=== PATIENT | male | born 1990 | race Caucasian/White ===

== ENCOUNTER 2020-03-06 14:13 | Emergency (ER) | payer BC, SELFPAY ==
[2020-03-06 14:26] VITALS: BP 133/94; PULSE 79; RESP 19; TEMP 37.6; O2SAT 99; BMI 25.3
--- NOTE | 2020-03-06 14:33 | HMH.EDUTC ---
[facility] [place] Disposition Clinical Impression: Exposure to COVID-19 virus Sinusitis Qualifiers: Sinusitis location: unspecified location Chronicity: acute Recurrence: non-recurrent Qualified Code(s): J01.90 - Acute sinusitis, unspecified Disposition: Home, Self-Care Condition on Discharge: Good Instructions: Sinusitis, DI for Sinusitis, Preventing the Spread of Coronavirus Discharge Instructions Additional Instructions: Drink plenty of fluids. Take tylenol or ibuprofen for pain or fever. Take the medications as directed. Follow up with your regular doctor. GO TO THE ER FOR ANY WORSENING SYMPTOMS FOLLOW THE DIRECTIONS ON THE COVID-19 HAND OUT THAT WE GAVE YOU REGARDING SELF-ISOLATION UNTIL YOU KNOW YOUR COVID-19 RESULTS Prescriptions: predniSONE [Deltasone 10mg tablet] 10 mg PO BID 3 Days #6 tab Transmission Status: Received by [facility] Azithromycin [Z-Davey 250mg Tab*] 250 mg PO UD DOSE PK #6 tab Transmission Status: [facility] Referrals: PCP,No [Primary Care Provider] - Forms: Work/School Release Time of Disposition: 14:51 Medical Decision Making - Medical Records Medical records reviewed: No: I reviewed the patient's medical records. - [place] Inquiry Pt receiving controlled substance: No Vital Signs: 03/06/20 14:26 03/06/20 14:57 Temperature 99.6 F 99.6 F Temperature Source Temporal Artery Scan Oral Pulse Rate 79 Pulse Rate [Radial] 79 Respiratory Rate 19 19 Blood Pressure 133/94 H Blood Pressure [Right Arm] 133/94 H Blood Pressure Mean [Right Arm] 107 Blood Pressure Source Automatic Cuff Blood Pressure Source [Right Arm] Automatic Cuff Blood Pressure Position Sitting Blood Pressure Position [Right Arm] Sitting 02 Sat by Pulse Oximetry 99 Oxygen Delivery Method Room Air Room Air [facility] [place] HPI - General Stated complaint: sinus infection/covid test Time Seen by Provider: 03/06/20 14:34 Mode of Arrival: Ambulatory Source of Information: Patient Limitations: No Limitations Description of Symptoms (Recalled from Triage Doc. by RN): states that he feels like he has a sinus infection and that his place of employment wants a covid screen done, weak, nausea, sore throat, cough. HEENT Symptoms (Recalled from RN notes): Yes Resp Symptoms (Recalled from RN notes): No Skin Symptoms (Recalled from RN notes): Yes MS Symptoms (Recalled from RN notes): No Functional Status (Recalled from RN notes): wnl - History of Present Illness Provider Complaint: He c/o feeling bad, and having sinus drainage for the past 2 days. - Related Data Previous Rx's Medication Instructions Recorded Amoxicillin/Potassium Clav 1 tab PO Q12H 7 Days #14 tab 05/07/19 [Augmentin 875-125 Tablet] predniSONE [Prednisone 20mg 20 mg PO BID #10 tab 05/07/19 Tab] Azithromycin [Z-Davey 250mg Tab*] 250 mg PO UD DOSE PK #6 tab 09/20/19 Brompheniramine/Pseudoephed/Dm 5 ml PO Q6HP PRN #240 syrup 09/20/19 [Bromfed Dm Cough Syrup] predniSONE [Deltasone 10mg tablet] 10 mg PO BID 4 Days #8 tab 09/20/19 Azithromycin [Z-Davey 250mg Tab*] 250 mg PO UD DOSE PK #6 tab 03/06/20 predniSONE [Deltasone 10mg tablet] 10 mg PO BID 3 Days #6 tab 03/06/20 Allergies Allergy/AdvReac Type Severity Reaction Status Date / Time No Known Allergies Allergy Verified 08/19/18 20:14 - Worker's Comp Is this a Worker's Comp case?: No [facility] [place] History - Hepatitis A Screen Drug use history?: No High risk sexual behaviors?: No History of sexually transmitted infection?: No Currently employed?: No Childcare worker?: No Do you have indoor plumbing?: Yes Do you have electricity?: Yes Attestation statement:: This patient has been screened for Hepatitis A risk factors. I have reviewed the patient's past medical history: Yes Laterality Cases: Bilateral: Myringotomy (Ear Tubes) - Social History Smoking Status: Never smoker Alcohol Intake: never Occupational Status: employed Housing: house
[2020-03-06 14:57] VITALS: BP 133/94; PULSE 79; RESP 19; TEMP 37.6; O2SAT 99
== END 2020-03-06 15:06 | disposition home or self-care (01) ==
PROVIDERS: Emergency Provider Nurse Practitioner Family
DX: Z20.828 Contact with and (suspected) exposure to other viral communicable diseases (principal); J01.90 Acute sinusitis, unspecified
CPT/HCPCS: 99201; U0003

== ENCOUNTER 2020-03-12 14:22 | Emergency (ER) | payer BC, SELFPAY ==
[2020-03-12 14:46] VITALS: BP 132/73; PULSE 57; RESP 14; TEMP 37.2; O2SAT 99; BMI 25.3
--- NOTE | 2020-03-12 14:55 | HMH.EDUTC ---
[facility] [place] Clinical Impression: Allergic rhinitis Qualifiers: Allergic rhinitis trigger: unspecified Allergic rhinitis seasonality: unspecified Qualified Code(s): J30.9 - Allergic rhinitis, unspecified Disposition: Home, Self-Care Condition on Discharge: Good Instructions: Allergic Rhinitis, DI for Allergic Rhinitis, Sore Throat, DI for Viral Upper Respiratory Infection -- Adult, Preventing the Spread of Coronavirus Discharge Instructions Additional Instructions: You was given handout with COVID19 self quarantine and self isolation instructions make sure that you follow them to help prevent the spread of COVID19 Call back tomorrow for the results of your [id number] test Return if needed *Monitor Temp, Over the counter Motrin or Tylenol as directed/as needed Tylenol every 4 hours and Motrin every 6 hours (as long as your family doctor has told you that you can take it) for fever or pain. and straight to ER if unable to lower temp less than 101.0 after medication given *Warm salt water gargles may help to soothe the throat *Throat Lozenges *Warm fluids like tea with honey may help to soothe the throat *Sleep elevated *Humidifier/Vaporizer *Nasonex 2 sprays in each nostril daily but be aware that it may take 2-3 days before you notice improvement Follow up IMMEDIATELY for new or worsening symptoms or no Noticeable improvement over the next 48-72 hours. 911 for difficulty breathing or swallowing Prescriptions: Mometasone Furoate [Nasonex] 2 sprays NS DAILY #1 spray.pump Transmission Status: Pending to [facility] Referrals: PCP,No [Primary Care Provider] - As needed Forms: Work/School Release Time of Disposition: 15:15 Medical Decision Making - [place] Inquiry Pt receiving controlled substance: No [place] was queried for this patient: No Vital Signs: 03/12/20 14:46 Temperature 98.9 F Temperature Source Oral Pulse Rate [Left Brachial] 57 L Respiratory Rate 14 Blood Pressure [Left Arm] 132/73 Blood Pressure Mean [Left Arm] 92 Blood Pressure Source [Left Arm] Automatic Cuff Blood Pressure Position [Left Arm] Sitting 02 Sat by Pulse Oximetry 99 Oxygen Delivery Method Room Air - Lab Data Lab Results 03/12/20 14:54: Strep Scn Rapid Clinic Negative Orders (Tests/Meds): ORDERS Category Date Time Status Coronavirus 19 Swab (OUTPT) Routine Lab 03/12/20 14:53 Ordered Strep Screen Confirmation Stat Micro 03/12/20 14:54 Received [facility] [place] - General Stated complaint: sore throat ear pain Time Seen by Provider: 03/12/20 14:55 Mode of Arrival: Ambulatory Source of Information: Patient Limitations: No Limitations Description of Symptoms (Recalled from Triage Doc. by RN): PATIENT C/O SORE THROAT, COUGH, AND HEADACHE HEENT Symptoms (Recalled from RN notes): Yes Resp Symptoms (Recalled from RN notes): Yes Skin Symptoms (Recalled from RN notes): No MS Symptoms (Recalled from RN notes): No Functional Status (Recalled from RN notes): WNL - History of Present Illness Provider Complaint: Patient states that he has been having sore throat, pain in both ears and mild cough since last week States that he was tested for COVID last week and it was negative and his daughter has been having similar symptoms and was tested yesterday States that today he wasnt feeling any better so he came in to get checked again - Related Data Previous Rx's Medication Instructions Recorded Amoxicillin/Potassium Clav 1 tab PO Q12H 7 Days #14 tab 05/07/19 [Augmentin 875-125 Tablet] predniSONE [Prednisone 20mg 20 mg PO BID #10 tab 05/07/19 Tab] Azithromycin [Z-Davey 250mg Tab*] 250 mg PO UD DOSE PK #6 tab 09/20/19 Brompheniramine/Pseudoephed/Dm 5 ml PO Q6HP PRN #240 syrup 09/20/19 [Bromfed Dm Cough Syrup] predniSONE [Deltasone 10mg tablet] 10 mg PO BID 4 Days #8 tab 09/20/19 Azithromycin [Z-Davey 250mg Tab*] 250 mg PO UD DOSE PK #6 tab 03/06/20 predniSONE [Deltasone 10mg tablet] 10 mg PO BID 3 Days #6 tab 08
[2020-03-12 14:59] LABS: UTC Strep Screen (Rapid) Negative (Negative)
[2020-03-12 15:20] VITALS: BP 132/73; PULSE 57; RESP 14; TEMP 37.2; O2SAT 99
== END 2020-03-12 15:22 | disposition home or self-care (01) ==
PROVIDERS: Emergency Provider Nurse Practitioner
DX: J30.9 Allergic rhinitis, unspecified (principal); Z03.818 Encounter for observation for suspected exposure to other biological agents ruled out
CPT/HCPCS: 87880; 99201; 99202; U0003

== ENCOUNTER 2020-12-09 11:22 | Emergency (ER) | payer BC, SELFPAY ==
[2020-12-09 12:10] VITALS: BP 138/86; PULSE 84; RESP 20; TEMP 37; O2SAT 100; BMI 25.0
--- NOTE | 2020-12-09 12:28 | HMH.EDUTC ---
[facility] [place] Clinical Impression: Enlarged lymph node in neck Otitis externa Qualifiers: Otitis externa type: swimmer's ear Chronicity: acute Laterality: right Qualified Code(s): H60.331 - Swimmer's ear, right ear Disposition: Home, Self-Care Condition on Discharge: Good Instructions: DI for Otitis Externa Additional Instructions: Start antibiotic as soon as possible and be sure to take as ordered for full length of time even though he should start feeling better in 24-48 hours. Tylenol or Motrin as needed for pain or fever Encourage fluids, water, Gatorade, Powerade, Pedialyte if infant/toddler/child Warm compresses often helps when placed over ear Return immediately for new or worsening symptoms no noticeable improvement in 48-72 hours and in 10-14 days to ensure the ears are return to baseline. Follow-up with primary care Prescriptions: cephALEXin [Cephalexin 500mg Tab] 500 mg PO BID 7 Days #14 tab Transmission Status: Pending to [facility] Neomycin/Polymyxin B/Hydrocort [Pdftisvi-Pejsqwsim-Ta Ear Soln] 3 drops OT TID 7 Days #1 bottle Transmission Status: Pending to [facility] Referrals: Provider,Referral, [Primary Care Provider] - Time of Disposition: 12:48 Medical Decision Making - [place] Inquiry Pt receiving controlled substance: No Vital Signs: 12/09/20 12:10 Temperature 98.6 F Temperature Source Oral Pulse Rate [Right Brachial] 84 Respiratory Rate 20 Blood Pressure [Right Arm] 138/86 Blood Pressure Mean [Right Arm] 103 Blood Pressure Source [Right Arm] Automatic Cuff Blood Pressure Position [Right Arm] Sitting 02 Sat by Pulse Oximetry 100 Oxygen Delivery Method Room Air [facility] [place] - General Chief complaint: Urgent Treatment Center Stated complaint: swollen lymph nodes, headache, dizziness Time Seen by Provider: 12/09/20 12:28 Mode of Arrival: Ambulatory Source of Information: Patient Limitations: No Limitations Description of Symptoms (Recalled from Triage Doc. by RN): PATIENT C/O SWOLLEN LYMPH NODES UNDER EARS, DIZZINESS, HEADACHE, SINUS PRESSURE, AND HAD A NOSE BLEED X 1; SYMPTOMS STARTED 2 DAYS AGO HEENT Symptoms (Recalled from RN notes): Yes Resp Symptoms (Recalled from RN notes): No Skin Symptoms (Recalled from RN notes): No MS Symptoms (Recalled from RN notes): No Functional Status (Recalled from RN notes): WNL - History of Present Illness Provider Complaint: 30 yr old male presents for swollen lymph nodes in neck under ears, dizziness,sinus pressure and nose bleed x1. pt states symptoms started 2 days ago. - Related Data Previous Rx's Medication Instructions Recorded Neomycin/Polymyxin B/Hydrocort 3 drops OT TID 7 Days #1 bottle 12/09/20 [Wzrwoply-Yfjivsozj-Ya Ear Soln] cephALEXin [Cephalexin 500mg Tab] 500 mg PO BID 7 Days #14 tab 12/09/20 Allergies Allergy/AdvReac Type Severity Reaction Status Date / Time No Known Allergies Allergy Verified 08/19/18 20:14 - Worker's Comp Is this a Worker's Comp case?: No [facility] History - Hepatitis A Screen Drug use history?: No High risk sexual behaviors?: No History of sexually transmitted infection?: No Currently employed?: No Childcare worker?: No Do you have indoor plumbing?: Yes Do you have electricity?: Yes Attestation statement:: This patient has been screened for Hepatitis A risk factors. I have reviewed the patient's past medical history: Yes Laterality Cases: Bilateral: Myringotomy (Ear Tubes) - Social History Smoking Status: Never smoker Alcohol Intake: never Occupational Status: other Housing: house ROS Obtained: Yes Systems reviewed as appropriate & no additional complaints - Constitutional Constitutional: Reports system reviewed and no additional complaints, except as docu, Denies fever(s) - Eyes Eyes: Reports system reviewed and no additional complaints, except as docu, Denies loss of vision - ENT Ears, Nose, Mouth, and Throat: Reports system reviewed and no additi
[2020-12-09 12:51] VITALS: BP 138/86; PULSE 84; RESP 20; TEMP 37; O2SAT 100
== END 2020-12-09 12:51 | disposition home or self-care (01) ==
PROVIDERS: Emergency Provider Nurse Practitioner Family
DX: H60.331 Swimmer's ear, right ear (principal)
CPT/HCPCS: 99202; G0463; U0003

== ENCOUNTER 2021-01-15 08:07 | Outpatient (RCR) | payer BC, SELFPAY | END 2021-02-14 11:00 | disposition home or self-care (01) | LOC: PT.CARL 08:07 | PROVIDERS: Visit Provider Nurse Practitioner Family | DX: S29.011D Strain of muscle and tendon of front wall of thorax, subsequent encounter (principal) | CPT/HCPCS: 97163 ==

== ENCOUNTER 2021-08-03 13:22 | Emergency (ER) | payer BC, SELFPAY ==
[2021-08-03 15:56] VITALS: BP 155/98; PULSE 77; RESP 18; TEMP 36.8; O2SAT 100; BMI 24.6
--- NOTE | 2021-08-03 16:15 | HMH.EDUTC ---
[facility] [place] Disposition Clinical Impression: Pharyngitis Qualifiers: Pharyngitis/tonsillitis etiology: unspecified etiology Qualified Code(s): J02.9 - Acute pharyngitis, unspecified Disposition: Home, Self-Care Condition on Discharge: Good Instructions: DI for Strep Throat, Strep Throat Additional Instructions: Drink plenty of fluids. Take tylenol or ibuprofen for pain or fever. Take the medications as directed. Follow up with your regular doctor. GO TO THE ER FOR ANY WORSENING SYMPTOMS Throw your tooth brush away and get a new one. Prescriptions: Brompheniramine/Pseudoephed/Dm [Bromfed Dm Cough Syrup] 5 ml PO Q6HP PRN #240 ml PRN Reason: Cough Transmission Status: Pending to [facility] Amoxicillin/Potassium Clav [Augmentin 875-125 Tablet] 1 tab PO Q12H 10 Days #20 tab Transmission Status: Pending to [facility] predniSONE [Deltasone 10mg tablet] 10 mg PO BID 3 Days #6 tab Transmission Status: Pending to [facility] Referrals: Provider,Referral, MD [Primary Care Provider] - Time of Disposition: 16:36 Medical Decision Making - Medical Records Medical records reviewed: No: I reviewed the patient's medical records. - [place] Inquiry Pt receiving controlled substance: No Vital Signs: 08/03/21 15:56 Temperature 98.2 F Temperature Source Oral Pulse Rate [Left] 77 Respiratory Rate 18 Blood Pressure [Right Arm] 155/98 H Blood Pressure Mean [Right Arm] 117 02 Sat by Pulse Oximetry 100 - Lab Data Lab results reviewed: Yes: I reviewed the patient's lab results. Orders (Tests/Meds): ORDERS Category Date Time Status Covid-19 Nasal PCR ([facility]) Routine Lab 08/03/21 16:22 Ordered [facility] [place] HPI - General Stated complaint: cough, congestion Time Seen by Provider: 08/03/21 16:15 Mode of Arrival: Ambulatory Source of Information: Patient Limitations: No Limitations Description of Symptoms (Recalled from Triage Doc. by RN): pt c/o a cough, sore throat, congestion, sneezing and green drainage. HEENT Symptoms (Recalled from RN notes): Yes (sore throat and congestion/drainage) Resp Symptoms (Recalled from RN notes): Yes (cough) Skin Symptoms (Recalled from RN notes): No MS Symptoms (Recalled from RN notes): No Functional Status (Recalled from RN notes): wnl - History of Present Illness Provider Complaint: He states that he has been having sinus congestion, runny nose with greenish drainage, and a sore throat - Related Data Previous Rx's Medication Instructions Recorded Neomycin/Polymyxin B/Hydrocort 3 drops OT TID 7 Days #1 bottle 12/09/20 [Eqyupukj-Pywgwyhmp-Yh Ear Soln] cephALEXin [Cephalexin 500mg Tab] 500 mg PO BID 7 Days #14 tab 12/09/20 Amoxicillin/Potassium Clav 1 tab PO Q12H 10 Days #20 tab 08/03/21 [Augmentin 875-125 Tablet] Brompheniramine/Pseudoephed/Dm 5 ml PO Q6HP PRN #240 ml 08/03/21 [Bromfed Dm Cough Syrup] predniSONE [Deltasone 10mg tablet] 10 mg PO BID 3 Days #6 tab 08/03/21 Allergies Allergy/AdvReac Type Severity Reaction Status Date / Time No Known Allergies Allergy Verified 08/19/18 20:14 - Worker's Comp Is this a Worker's Comp case?: No [facility] History - Hepatitis A Screen Drug use history?: No High risk sexual behaviors?: No History of sexually transmitted infection?: No Currently employed?: No Childcare worker?: No Do you have indoor plumbing?: Yes Do you have electricity?: Yes Attestation statement:: This patient has been screened for Hepatitis A risk factors. I have reviewed the patient's past medical history: Yes Laterality Cases: Bilateral: Myringotomy (Ear Tubes) - Social History Smoking Status: Never smoker Alcohol Intake: never Occupational Status: other Housing: house ROS Obtained: Yes All systems reviewed & no additional complaints - Constitutional Constitutional: Reports as per HPI - Eyes Eyes: Denies eye discharge - ENT Ears, Nose, Mouth, and Throat: Reports as per HPI - Cardiovascu
[2021-08-03 16:28] LABS: UTC Influenza A Antigen Negative (Negative); UTC Influenza B Antigen Negative (Negative)
[2021-08-03 16:43] VITALS: BP 155/98; PULSE 77; RESP 18; TEMP 36.8
== END 2021-08-03 16:52 | disposition home or self-care (01) ==
PROVIDERS: Emergency Provider Nurse Practitioner Family
DX: J02.9 Acute pharyngitis, unspecified (principal); Z20.822 Contact with and (suspected) exposure to COVID-19
CPT/HCPCS: 87804; 99202; C9803; G0463; U0003; U0005

== ENCOUNTER 2021-10-05 19:36 | Emergency (ER) | payer BC, SELFPAY ==
[2021-10-05 19:50] VITALS: BP 141/98; PULSE 90; RESP 18; TEMP 37.1; O2SAT 98; BMI 25.9
[2021-10-05 20:18] LABS: UTC Influenza A Antigen Negative (Negative); UTC Influenza B Antigen Negative (Negative)
--- NOTE | 2021-10-05 20:22 | HMH.EDUTC ---
[facility] [place] Dis[place] Clinical Impression: Sinusitis Qualifiers: Sinusitis location: maxillary Chronicity: acute Recurrence: non-recurrent Qualified Code(s): J01.00 - Acute maxillary sinusitis, unspecified Disposition: Home, Self-Care Condition on Discharge: Good Instructions: DI for Sinusitis Additional Instructions: Start antibiotic patient to take as ordered for a full length of time even if you feel better. Sinus infections do not get better overnight. It may take 2-3 days to notice much improvement so be sure to use conservative measures as discussed for symptoms. Flonase 1 spray each nostril daily to help with nasal congestion, sinus and ear pressure/information Increase fluids Humidifier/vaporizer as needed Tylenol and ibuprofen as needed for fever or pain. If symptoms do not improve or get worse return or be seen in the ER Follow-up with primary care this week Prescriptions: Fluticasone Propionate [Flonase 50mcg nasal spray 16gm] 1 spr NS DAILY 14 Days #9.9 ml Transmission Status: Pending to [facility] Azithromycin [Zithromax 250mg tab] 250 mg PO DIRECTED #6 tab Transmission Status: Pending to [facility] Referrals: Provider,Referral, [Primary Care Provider] - Forms: Work/School Release Time of Disposition: 20:25 Medical Decision Making - [place] Inquiry Pt receiving controlled substance: No Vital Signs: 10/05/21 19:50 Temperature 98.8 F Temperature Source Oral Pulse Rate [Right Brachial] 90 Respiratory Rate 18 Blood Pressure [Right Arm] 141/98 H Blood Pressure Mean [Right Arm] 112 Blood Pressure Source [Right Arm] Automatic Cuff Blood Pressure Position [Right Arm] Sitting 02 Sat by Pulse Oximetry 98 Oxygen Delivery Method Room Air - Lab Data Lab Results 10/05/21 19:58: Influenza Type A Ag Negative, Influenza Type B Ag Negative Orders (Tests/Meds): ORDERS Category Date Time Status Covid-19 Nasal PCR ([facility]) Routine Lab 10/05/21 20:02 Stop Req Full Resp Panel w/COVID ([facility]) Routine Lab 10/05/21 20:21 Ordered [facility] [place] HPI - General Chief complaint: Urgent Treatment Center Stated complaint: COUGH,gomez RUNNY NOSE Time Seen by Provider: 10/05/21 20:22 Mode of Arrival: Ambulatory Source of Information: Patient Limitations: No Limitations Description of Symptoms (Recalled from Triage Doc. by RN): PATIENT C/O RUNNY NOSE, HEADACHE AND NAUSEA X 1 WEEK HEENT Symptoms (Recalled from RN notes): Yes Resp Symptoms (Recalled from RN notes): No Skin Symptoms (Recalled from RN notes): No MS Symptoms (Recalled from RN notes): No Functional Status (Recalled from RN notes): WNL - History of Present Illness Provider Complaint: 31 yr old male presents for sore throat, yellow/green nasal congetion,body aches,fever and cough for 2 days. has the flu - Related Data Previous Rx's Medication Instructions Recorded Azithromycin [Zithromax 250mg 250 mg PO DIRECTED #6 tab 10/05/21 tab] Fluticasone Propionate [Flonase 1 spr NS DAILY 14 Days #9.9 ml 10/05/21 50mcg nasal spray 16gm] Allergies Allergy/AdvReac Type Severity Reaction Status Date / Time No Known Allergies Allergy Verified 08/19/18 20:14 - Worker's Comp Is this a Worker's Comp case?: No [facility] History - Hepatitis A Screen Drug use history?: No High risk sexual behaviors?: No History of sexually transmitted infection?: No Currently employed?: No Childcare worker?: No Do you have indoor plumbing?: Yes Do you have electricity?: Yes Attestation statement:: This patient has been screened for Hepatitis A risk factors. I have reviewed the patient's past medical history: Yes Laterality Cases: Bilateral: Myringotomy (Ear Tubes) - Social History Smoking Status: Never smoker Alcohol Intake: never Occupational Status: other Housing: house ROS Obtained: Yes Systems reviewed as appropriate & no additional complaints - Constitutional Constitutional: Reports system reviewed and
[2021-10-05 20:33] LABS: Adenovirus,PCR Not Detected (NotDetected); Bordetella Pertussis Not Detected (NotDetected); Chlamydophila Pneumoniae, PCR Not Detected (NotDetected); Coronavirus 19, PCR Not Detected (NotDetected); Coronavirus 229E Not Detected (NotDetected); Coronavirus NL63 Not Detected (NotDetected); Coronavirus OC43 Not Detected (NotDetected); Coronovirus HKU1,PCR Not Detected (NotDetected); Human Metapneumovirus Not Detected (NotDetected); Influenza A, PCR Not Detected (NotDetected); Influenza AH1, 2009 Not Detected (NotDetected); Influenza AH1, PCR Not Detected (NotDetected); Influenza AH3,PCR Not Detected (NotDetected); Influenza B, PCR Not Detected (NotDetected); Mycoplasma Pneumoniae, PCR Not Detected (NotDetected); Parainfluenza 1, PCR Not Detected (NotDetected); Parainfluenza 2, PCR Not Detected (NotDetected); Parainfluenza 3, PCR Not Detected (NotDetected); Parainfluenza 4, PCR Not Detected (NotDetected); Respiratory Syncytial Virus Not Detected (NotDetected); Rhinovirus/Enterovirus Not Detected (NotDetected)
[2021-10-05 20:34] VITALS: BP 141/98; PULSE 90; RESP 18; TEMP 37.1; O2SAT 98
== END 2021-10-05 20:35 | disposition home or self-care (01) ==
PROVIDERS: Emergency Provider Nurse Practitioner Family
DX: J01.00 Acute maxillary sinusitis, unspecified (principal); J02.9 Acute pharyngitis, unspecified; Z20.822 Contact with and (suspected) exposure to COVID-19; Z79.51 Long term (current) use of inhaled steroids; Z79.899 Other long term (current) drug therapy
CPT/HCPCS: 87581; 87632; 87798; 87804; 99283; C9803; U0003; U0005

== ENCOUNTER 2022-06-28 15:46 | Emergency (ER) | payer BC, SELFPAY ==
[2022-06-28 17:55] VITALS: BP 136/86; PULSE 91; RESP 18; TEMP 36.9; O2SAT 100; BMI 25.8
[2022-06-28 18:13] LABS: UTC Strep Screen (Rapid) Negative (Negative)
[2022-06-28 18:14] LABS: UTC Influenza A Antigen Negative (Negative); UTC Influenza B Antigen Negative (Negative)
--- NOTE | 2022-06-28 18:23 | EXP.UTC ---
Discharge Plan Disposition Patient Disposition: Home, Self-Care Condition: Good Prescriptions Prescriptions: New nmretkksvlakdss-ufyxivelm-YQ [Bromfed DM] 2-30-10 mg/5 mL Syrup 10 ml PO Q4H PRN (Reason: Cough) Qty: 240 0RF Referrals Follow up/Referrals: Brii Cervantes [Primary Care Provider] - See instructions Activity Restrictions/Add. Instructions Additional Instructions/Restrictions: *Monitor Temp, Over the counter Motrin or Tylenol as directed/as needed Tylenol every 4 hours and Motrin every 6 hours (as long as your family doctor has told you that you can take it) for fever or pain. and straight to ER if unable to lower temp less than 101.0 after medication given *Warm salt water gargles may help to soothe the throat *Throat Lozenges? *Warm fluids like tea with honey may help to soothe the throat? *Sleep elevated *Humidifier/Vaporizer *Bromfed may cause drowsiness. Know how it effects you (your child) before driving, caring for small child, or sending your child to school. Not other antihistamines/allergy medications while taking bromfed Your throat swab was sent for culture. Those results are typically sent to your primary care. Be sure to follow up in 2-3 days with your family doctor/primary care physician if no improvement so they can review those result and treat if necessary. If you don?t have a primary care doctor, I recommend you get one but in the mean time, you will have to return to a walk in clinic Follow up IMMEDIATELY for new or worsening symptoms or no Noticeable improvement over the next 48-72 hours. 911 for difficulty breathing or swallowing You were tested for today for ?Upper Respiratory Panel with COVID19 your test result should be back in the next 24-48 hours, you may check your results on the [facility] Clinical Impressions Clinical Impression: Viral upper respiratory tract infection with cough Stand Alone Forms Stand Alone Forms: Work/School Release Instructions Patient Instructions: Cough Discharge ED Provider: Elio Flowers [facility] [place] HPI General Stated complaint: Cough; sore throat; nausea Mode of Arrival: Ambulatory Source of Information: Patient Limitations: No Limitations Time Seen by Provider: 06/28/22 18:23 Description of Symptoms (Recalled from Triage Doc. by RN): PATIENT C/O COUGH, SORE THROAT, FATIGUE X 3 DAYS HEENT Symptoms (Recalled from RN notes): Yes Resp Symptoms (Recalled from RN notes): Yes Skin Symptoms (Recalled from RN notes): No MS Symptoms (Recalled from RN notes): No Functional Status (Recalled from RN notes): WNL History of Present Illness Provider Complaint: Patient state that he hasnt felt well for a couple of days State that he has been feeling tired, achy all over, cough, sore throat and nasal congestion so today he came in to get checked Related Data Previous Rx's Medication Instructions Recorded gcqpzestsurlbdt-trvfcexgluqebzy-LO 10 ml PO Q4H PRN Cough #240 mL 06/28/22 2 mg-30 mg-10 mg/5 mL oral syrup (Bromfed DM) Allergies Allergy/AdvReac Type Severity Reaction Status Date / Time No Known Allergies Allergy Verified 08/19/18 20:14 Worker's Comp Is this a Worker's Comp case?: No PFSH PFSH Medical History (Updated 06/28/22 @ 18:26 by Bela Dixon APRN) No significant past medical history Social History (Updated 06/28/22 @ 18:11 by Tiny Lima RN) Smoking Status: Never smoker alcohol intake: never current occupational status: other Travel in the last 8 weeks: None housing: house ROS Obtained: Yes All systems reviewed & no additional complaints except as documented and Yes Systems reviewed as appropriate & no additional complaints except as documented Constitutional Constitutional: Reports system reviewed and no additional complaints, except as documented, Reports as per HPI, Reports body ache, Reports chills and Reports fatigue ENT Ears, Nose, Mouth, and Throat: Reports system
[2022-06-28 18:30] VITALS: BP 136/86; PULSE 91; RESP 18; TEMP 36.9; O2SAT 100
[2022-06-28 18:54] LABS: Adenovirus,PCR Not Detected (NotDetected); Bordetella Pertussis Not Detected (NotDetected); Chlamydophila Pneumoniae, PCR Not Detected (NotDetected); Coronavirus 19, PCR Not Detected (NotDetected); Coronavirus 229E Not Detected (NotDetected); Coronavirus NL63 Not Detected (NotDetected); Coronavirus OC43 Not Detected (NotDetected); Coronovirus HKU1,PCR Not Detected (NotDetected); Human Metapneumovirus Not Detected (NotDetected); Influenza A, PCR Not Detected (NotDetected); Influenza AH1, 2009 Not Detected (NotDetected); Influenza AH1, PCR Not Detected (NotDetected); Influenza AH3,PCR Not Detected (NotDetected); Influenza B, PCR Not Detected (NotDetected); Mycoplasma Pneumoniae, PCR Not Detected (NotDetected); Parainfluenza 1, PCR Not Detected (NotDetected); Parainfluenza 2, PCR Not Detected (NotDetected); Parainfluenza 3, PCR Not Detected (NotDetected); Parainfluenza 4, PCR Not Detected (NotDetected); Respiratory Syncytial Virus Not Detected (NotDetected); Rhinovirus/Enterovirus Not Detected (NotDetected)
== END 2022-06-28 18:34 | disposition home or self-care (01) ==
PROVIDERS: Nurse Practitioner; Emergency Provider Emergency Medicine; PCP Nurse Practitioner Family
DX: J06.9 Acute upper respiratory infection, unspecified (principal); J02.9 Acute pharyngitis, unspecified; M79.10 Myalgia, unspecified site; R09.81 Nasal congestion; R11.0 Nausea; Z20.822 Contact with and (suspected) exposure to COVID-19
CPT/HCPCS: 87581; 87632; 87798; 87804; 87880; 99213; C9803; G0463; U0003; U0005